=== PATIENT | male | born 1945 | race Caucasian/White ===

== ENCOUNTER 2019-08-09 12:39 | Emergency (ER) | payer OTHER ==
--- NOTE | 2019-08-09 12:42 | PDOC ---
History of Present Illness - General Chief Complaint: Injury Stated Complaint: "slipped and fell at work today" Time Seen by Provider: 08/09/19 12:41 - History of Present Illness Initial Comments: 08/09/19 13:17 HPI: 73 y/o M with hx of HTN, DM, IA, Afib (not currently on AC) presenting following a mechanical fall. He slipped in the office and landed on his right side, primarily hitting his low back on a chair. He states he secondarily hit his right shoulder and right occipital head. He reports right low back pain and right shoulder pain. He denies LOC, ZAMAN, chest pain, SOB, abd pain, incontinence , seizure. His back pain is worse with breathing and coughing. His pcp told him to go to ER to ruleout fx PMHx: as noted above ROS: as noted SHx: Denies tobacco use; no alcohol use; no rec drugs Allergies: NKDA ROS: GENERAL/CONSTITUTIONAL: No fever or chills. No weakness. HEAD, EYES, EARS, NOSE AND THROAT: No change in vision. No ear pain or discharge. No sore throat. CARDIOVASCULAR: No chest pain or shortness of breath RESPIRATORY: No cough, wheezing, or hemoptysis. GASTROINTESTINAL: No nausea, vomiting, diarrhea or constipation. GENITOURINARY: No dysuria, frequency, or change in urination. MUSCULOSKELETAL: +back pain. SKIN: No rash NEUROLOGIC: No headache, vertigo, loss of consciousness, or change in strength/ sensation. ENDOCRINE: No increased thirst. No abnormal weight change HEMATOLOGIC/LYMPHATIC: No anemia, easy bleeding, or history of blood clots. ALLERGIC/IMMUNOLOGIC: No hives or skin allergy. PE: GENERAL: Awake, alert, and fully oriented, no acute distress HEAD: No signs of trauma, normocephalic, atraumatic EYES: EOMI, sclera anicteric, conjunctiva clear ENT: Auricles normal inspection, hearing grossly normal, nares patent, oropharynx clear without exudates. Moist mucosa NECK: Normal ROM, no lymphadenopathy LUNGS: No increased work of breathing, symmetrical chest rise, clear to auscultation bilaterally, no wheezes, crackles or rhonchi HEART: Regular rate and rhythm, normal S1 and S2, no murmurs, peripheral pulses 2+ and equal bilaterally. ABDOMEN: Soft, nondistended, nontender, normoactive bowel sounds. No guarding, no rebound. No masses. No CVAT BACK: thoracic midline ttp, right lumbar abrasion with ttp, no lacerations, ecchymosis or deformity EXTREMITIES: Normal inspection, Normal range of motion, no edema. No clubbing or cyanosis. NEUROLOGICAL: Cranial nerves II through XII grossly intact. Normal speech, normal gait, no focal sensorimotor deficits SKIN: Warm, Dry, normal turgor, no rashes or lesions noted Past History - Past Medical History Allergies/Adverse Reactions: Allergies Allergy/AdvReac Type Severity Reaction Status Date / Time No Known Allergies Allergy Verified 08/09/19 12:52 Home Medications: Ambulatory Orders Atorvastatin Ca [Lipitor] 40 mg PO HS 08/09/19 Glyburide/Metformin HCl [Glyburide-Metformin 5-500 mg] 1 each PO BID 08/09/19 Lisinopril [Prinivil] 5 mg PO DAILY 08/09/19 Metoprolol Succinate [Toprol Xl] 50 mg PO DAILY 08/09/19 Medical Decision Making - Medical Decision Making 08/09/19 14:00 73 y/o M with hx of HTN, DM, IA, Afib (not currently on AC) presenting following a mechanical fall with right back pain worse with breathing and coughing. VSS, AF. PE notable for right lumbar abrasion with ttp -rib series XR -pain control] 08/09/19 14:05 XR with no acute rib fx will administer lidoderm patch and D home discussed results with patient; he is comfortable with plan and will followup with pcp as needed Discharge - Discharge Information Problems reviewed: Yes Clinical Impression/Diagnosis: Back pain Qualifiers: Back pain location: low back pain Chronicity: acute Back pain laterality: right Sciatica presence: without sciatica Qualified Code(s): M54.5 - Low back pain Fall Qualifiers: Encounter type: initial encounter Qualified Code(s): W19.XXXA - Unspecified fall, initial encounter Condition: Stable Disposition: HOME - Follow up/Referral - Patient Discharge Instructions Patient Printed Discharge Instructions: DI for Low Back Pain Additional Instructions: Return to the ED if there is concern for new or worsening symptoms including worsening pain, shortness of breath, chest pain, fevers Your area of injury may appear worse before it looks better; do not be alarmed if it has different colors of bruising You may take tylenol 600mg every 6-8 hours and motrin 600mg every 6-8 hours for pain control. You may also purchase 4%lidocaine transdermal patches over the counter from the pharmacy Please followup with you PCP for re-evaluation - Post Discharge Activity
--- NOTE | 2019-08-09 12:51 | PDOC ---
Attending Attestation - Resident Resident Name: Aileen Carroll - HPI HPI: 08/09/19 14:05 Pt presents to the ED complaining of R posterior rib pain after mechanical slip and fall. Patient hit his R posterior chest on the back of a chair, and is complaining of pleuritic pain and point tenderness at the site of an abrasion and contusion there. Denies LOC. Denies abdominal pain. Patient was ambulatory at the scene and in the ED. - Physicial Exam PE: 08/09/19 14:13 Agree with resident exam. Pt is alert and oriented x 3 and in no acute distress. + small abrasion and ecchymosis on the R posterior ribs. + tenderness in that region. Lungs are clear b/l with good air entry. - Medical Decision Making 08/09/19 14:21 Pt presents to the ED complaining of pleuritic chest pain after mechanical trip and fall. Denies other injuries. XRays checked to evaluate for rib fx or ptx and are negative. Will discharge home with pain control.
[2019-08-09 12:52] VITALS: BP 134/71; PULSE 61; TEMP 97.7; BMI 27.0
[2019-08-09] MEDS ORDERED: ACETAMINOPHEN 500 MG TABLET (FP) PO ONE (13:12)
[2019-08-09] MEDS ORDERED: ACETAMINOPHEN 325 MG TABLET (FP) ONE (13:14)
[2019-08-09] MEDS ORDERED: LIDOCAINE 5% TOPICAL PATCH TP ONE (14:05)
[2019-08-09] MEDS ORDERED: LIDOCAINE 5% TOPICAL PATCH ONE (14:07)
[2019-08-09] MEDS ORDERED: LIDOCAINE PATCH REMOVAL MC SCH (22:00)
== END 2019-08-09 14:25 | disposition home or self-care (01) ==
LOC: FER 12:39
DX: M54.5 Low back pain (principal); W18.39XA Other fall on same level, initial encounter; Y93.89 Activity, other specified; Y92.89 Other specified places as the place of occurrence of the external cause; Y99.0 Civilian activity done for income or pay; I10 Essential (primary) hypertension; E11.9 Type 2 diabetes mellitus without complications; I25.2 Old myocardial infarction; I48.91 Unspecified atrial fibrillation
CPT/HCPCS: 71101-TC-RT-FY; 99283-25